=== PATIENT | male | born 1975 | race Caucasian/White ===

== ENCOUNTER 2017-01-26 11:39 | Emergency (ER) | payer BC ==
[2017-01-26 12:00] VITALS: BP 143/82
--- NOTE | 2017-01-26 12:30 | RAD ---
Indication: Lateral edema and pain with right ankle injury. 3 views of the right ankle demonstrates oblique fracture through the distal fibula. Soft tissue swelling is noted laterally. Ankle mortise is intact. IMPRESSION: Oblique fracture of the distal fibula with soft tissue swelling.
--- NOTE | 2017-01-26 12:53 | UC ---
Lower Extremity/Ankle HPI - HPI Summary HPI Summary: YESTERDAY SLIPPED WHILE WALKING IN THE [place]. PAIN AND SWELLING IN RIGHT ( LATERAL) ANKLE. 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 Onset/Duration: Sudden Onset, Lasting Hours Severity Initially: Moderate Severity Currently: Moderate Aggravating Factor(s): Standing, Ambulation Alleviating Factor(s): Rest, Elevation Able to Bear Weight: Yes - Risk Factors Gout Risk Factors: Negative DVT Risk Factors: Negative Septic Arthritis Risk Factor: Negative - Allergies/Home Medications Allergies/Adverse Reactions: Allergies Allergy/AdvReac Type Severity Reaction Status Date / Time No Known Allergies Allergy Verified 01/26/17 12:00 Home Medications: Home Medications Ibuprofen TAB* [Motrin TAB* 400 MG] 400 mg PO ONCE PRN 01/26/17 [History Confirmed 01/26/17] PMH/Surg Hx/FS Hx/Imm Hx Previously Healthy: Yes - Surgical History Surgical History: None Surgery Procedure, Year, and Place: removal of a lipoma on back - Family History Known Family History: Positive: None, Hypertension - Social History Occupation: Employed Full-time Lives: With Family Alcohol Use: Occasionally Substance Use Type: None Smoking Status (MU): Former Smoker Type: Cigarettes Have You Smoked in the Last Year: No Review of Systems Constitutional: Negative Skin: Negative Eyes: Negative ENT: Negative Respiratory: Negative Cardiovascular: Negative Gastrointestinal: Negative Genitourinary: Negative Motor: Negative Neurovascular: Negative Musculoskeletal: Arthralgia, Edema - RIGHT LATERAL ANKLE, Myalgia Neurological: Negative Psychological: Negative Is Patient Immunocompromised?: No All Other Systems Reviewed And Are Negative: Yes Physical Exam Triage Information Reviewed: Yes Appearance: Well-Appearing, No Pain Distress, Well-Nourished Vital Signs: Initial Vital Signs Temp 98.3 F 01/26/17 11:54 Pulse 86 01/26/17 11:54 Resp 18 01/26/17 11:54 BP 143/82 01/26/17 11:54 Vital Signs Reviewed: Yes Eye Exam: Normal ENT Exam: Normal ENT: Positive: Normal ENT inspection, Hearing grossly normal, Pharynx normal Dental Exam: Normal Neck exam: Normal Neck: Positive: Supple, Nontender, No Lymphadenopathy Respiratory Exam: Normal Respiratory: Positive: Chest non-tender, Lungs clear, Normal breath sounds, No respiratory distress, No accessory muscle use Cardiovascular Exam: Normal Cardiovascular: Positive: RRR, No Murmur, Pulses Normal, Brisk Capillary Refill Abdominal Exam: Normal Musculoskeletal: Positive: Strength Limited @ - RIGHT ANKLE, ROM Limited @ - RIGHT ANKLE, Edema @ - RIGHT ANKLE, Other: - NO PROXIMAL LATERAL LEG TENDERNESS , NO FOOT TENDERNESS TO PALPATION Neurological Exam: Normal Psychological Exam: Normal Skin Exam: Normal Diagnostics - Radiology No standard instances Xray Interpretation: Positive (See Comments) - Interpreted by radiologist, reviewed by BERYL. Interpretation : CLOSED OBLIQUE FRACTURE OF THE DISTAL FIBULA WITH SOFT TISSUE SWELLING Radiology Interpretation Completed By: ED Physician, Radiologist Lower Extremity Course/Dx - Differential Dx/Diagnosis Differential Diagnosis/HQI/PQRI: Fracture (Closed), Sprain, Strain Provider Diagnoses: CLOSED OBLIQUE FRACTURE OF THE RIGHT DISTAL FIBULA WITH SOFT TISSUE SWELLING. Discharge - Discharge Plan Condition: Stable Disposition: HOME Patient Education Materials: Ankle Fracture (ED) Referrals: Clifford Portillo MD [Medical Doctor] - Mick Corrla DO [Primary Care Provider] -
== END 2017-01-26 13:01 | disposition home or self-care (01) ==
LOC: UCCORT 11:39
DX: S82.831A Other fracture of upper and lower end of right fibula, initial encounter for closed fracture (principal); W18.49XA Other slipping, tripping and stumbling without falling, initial encounter; Y93.01 Activity, walking, marching and hiking; Y92.9 Unspecified place or not applicable; Z87.891 Personal history of nicotine dependence
CPT/HCPCS: 99213; G0463

== ENCOUNTER 2017-03-23 15:53 | Emergency (ER) | payer BC, OTHER ==
[2017-03-23 17:03] VITALS: BP 126/84
--- NOTE | 2017-03-23 18:29 | ED ---
Respiratory - HPI Summary HPI Summary: 42 yr old male with the complaint of fever, chills, cough, malaise, muscle aches , pain with coughing. Onset about 36 hours ago. No other complaints. - History of Current Complaint Chief Complaint: UCGeneralIllness Stated Complaint: FEVER SORE THROAT CONGESTION Time Seen by Provider: 03/23/17 18:09 Pain Intensity: 2 - Allergy/Home Medications Allergies/Adverse Reactions: Allergies Allergy/AdvReac Type Severity Reaction Status Date / Time No Known Allergies Allergy Verified 01/26/17 12:00 Home Medications: Home Medications D-Methorphan/PE/Acetaminophen [Daytime Cold-Flu Relief Sftgl] 1 each PO DAILY [History Confirmed 03/23/17] Dextromethorphan Hb/Doxylamine [Gnp Night Time Cough] 1 liq PO BEDTIME PRN 03/23 [History Confirmed 03/23/17] PMH/Surg Hx/FS Hx/Imm Hx Previously Healthy: Yes - Surgical History Surgery Procedure, Year, and Place: removal of a lipoma on back Infectious Disease History: No Infectious Disease History: Denies: Hx Clostridium Difficile, Hx Hepatitis, Hx Human Immunodeficiency Virus (HIV), Hx of Known/Suspected MRSA, Hx Shingles, Hx Tuberculosis, Hx Known/ Suspected VRE, Hx Known/Suspected VRSA, History Other Infectious Disease, Traveled Outside the [place] in Last 30 Days - Family History Known Family History: Positive: None, Hypertension - Social History Alcohol Use: Occasionally Substance Use Type: Reports: None Smoking Status (MU): Former Smoker Type: Cigarettes Have You Smoked in the Last Year: No Review of Systems Positive: Fever, Chills Positive: Nasal Discharge Positive: Cough Positive: Myalgia All Other Systems Reviewed And Are Negative: Yes Physical Exam Triage Information Reviewed: Yes Vital Signs On Initial Exam: Initial Vitals Temp Pulse Resp BP Pulse Ox 99.4 F 75 24 126/84 99 03/23/17 16:59 03/23/17 16:59 03/23/17 16:59 03/23/17 16:59 03/23/17 16:59 Vital Signs Reviewed: Yes Appearance: Positive: Well-Appearing, No Pain Distress Skin: Positive: Warm, Skin Color Reflects Adequate Perfusion Head/Face: Positive: Normal Head/Face Inspection Eyes: Positive: EOMI ENT: Positive: Pharynx normal Neck: Positive: Nontender Respiratory/Lung Sounds: Positive: Clear to Auscultation, Breath Sounds Present Cardiovascular: Positive: RRR. Negative: Murmur Abdomen Description: Positive: Nontender Musculoskeletal: Positive: Strength/ROM Intact Neurological: Positive: Sensory/Motor Intact, Alert, Oriented to Person Place, Time, CN Intact II-III Psychiatric: Positive: Normal - Gilbert Coma Scale Best Eye Response: 4 - Spontaneous Best Motor Response: 6 - Obeys Commands Best Verbal Response: 5 - Oriented Coma Scale Total: 15 Diagnostics - Vital Signs Vital Signs Temp Pulse Resp BP Pulse Ox 03/23/17 16:59 99.4 F 75 24 126/84 99 - Laboratory Lab Statement: Any lab studies that have been ordered have been reviewed, and results considered in the medical decision making process. Disposition - Course Course Of Treatment: 42 yr old male with the complaint of coughing, myalgias. Flu like symptoms. - Diagnoses Provider Diagnoses: Influenza Discharge - Discharge Plan Condition: Good Disposition: HOME Patient Education Materials: Influenza (ED) Referrals: Mick Corral DO [Primary Care Provider] -
== END 2017-03-23 18:56 | disposition home or self-care (01) ==
LOC: UCCORT 15:53
DX: J11.1 Influenza due to unidentified influenza virus with other respiratory manifestations (principal); Z87.891 Personal history of nicotine dependence; Z72.89 Other problems related to lifestyle
CPT/HCPCS: 87502; 99212; G0463

== ENCOUNTER 2018-06-13 18:37 | Emergency (ER) | payer OTHER ==
--- OUTSIDE RECORDS SUMMARY | 2018-06-13 18:49 | XMS REPORT | Continuity of Care Document ---
:1975 External Reference #:[id number] Author Name Mick Corral, Address [address] [place] [address] Care Team Providers Name Role Phone Mick Corral Care Team Information Kennel Manager Dog Track Unavailable Payers Date Identification Numbers Payment Provider Subscriber Effective: 2018 Policy Number: [id number] [facility]ance PayID: [id number] [place] [id number] Advance Directives Description No Information Available Problems Active Problems Provider Date Lipoma (clinical) Terrell Salazar MD Onset: 04/15/2011 Family History Date Family Member(s) Observation Comments Father Arthritis Mother Arthritis Social History Type Date Description Comments Sex Unknown Marital Status Single 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 Tobacco Use Start: Unknown End: Patient is a former Unknown smoker Allergies, Adverse Reactions, Alerts Description No Known Drug Allergies Medications Active Medications SIG Qnty Indications Ordering Provider Date No Active Medications Unknown 06/02/2018 History Medications No Active Medications Unknown 04/02/2015 - 04/08/2017 Vitamin D 1 by mouth every day Unknown - 06/02/2018 1000Unit Tablets Immunizations CPT Code Status Date Vaccine Lot # [id number] Given 05/10/2012 Tdap (Adacel) Ages 7 And Above Only [id number] Refused 06/02/2018 Influenza Vac, Quadrivalent, Split, 0.5mL Dosage, Im Use Vital Signs Date Vital Result Comment 06/02/2018 11:53am Weight 178.00 lb Heart Rate 74 /min BP Systolic 148 mmHg BP Diastolic 84 mmHg BP Systolic Recheck 120 mmHg BP Diastolic Recheck 78 mmHg Respiratory Rate 17 /min Height 72.25 inches 6'0.25" (03/2016) BMI (Body Mass Index) 24.0 kg/m2 04/08/2017 9:19am Weight 180.00 lb Heart Rate 74 /min BP Systolic 104 mmHg BP Diastolic 70 mmHg Respiratory Rate 17 /min Height 72.25 inches 6'0.25" (03/2016) BMI (Body Mass Index) 24.2 kg/m2 04/03/2016 11:05am Weight 181.00 lb Heart Rate 74 /min BP Systolic 118 mmHg BP Diastolic 64 mmHg Respiratory Rate 17 /min Height 72.25 inches 6'0.25" (03/2016) BMI (Body Mass Index) 24.4 kg/m2 04/02/2015 10:35am Weight 172.00 lb Heart Rate 72 /min BP Systolic 132 mmHg BP Diastolic 78 mmHg BP Systolic Recheck 124 mmHg BP Diastolic Recheck 84 mmHg Respiratory Rate 17 /min Height 72.25 inches 6'0.25" (03/2015) BMI (Body Mass Index) 23.2 kg/m2 05/13/2013 9:10am Weight 169.00 lb Heart Rate 70 /min BP Systolic 112 mmHg BP Diastolic 64 mmHg Respiratory Rate 18 /min Height 70.5 inches 5'10.50" (04/2013) 03/16/2013 1:50pm Body Temperature 98.0 F Weight 162.00 lb Down 19# Heart Rate 64 /min BP Systolic 120 mmHg BP Diastolic 70 mmHg Respiratory Rate 18 /min 05/10/2012 10:49am Weight 183.00 lb Heart Rate 72 /min BP Systolic 124 mmHg BP Diastolic 86 mmHg Respiratory Rate 20 /min Height 73.5 inches 6'1.50" 10/06/2011 1:03pm Weight 184.00 lb Heart Rate 72 /min BP Systolic 140 mmHg BP Diastolic 80 mmHg Respiratory Rate 20 /min Height 72.5 inches 6'0.50" 04/15/2011 1:13pm Weight 191.00 lb BP Systolic 134 mmHg BP Diastolic 82 mmHg Respiratory Rate 20 /min 01/14/2011 3:09pm Weight 185.00 lb Heart Rate 70 /min BP Systolic 132 mmHg BP Diastolic 90 mmHg Respiratory Rate 17 /min Height 72.5 inches 6'0.50" 08/26/2010 2:29pm Weight 179.00 lb Heart Rate 80 /min BP Systolic 136 mmHg BP Diastolic 92 mmHg Respiratory Rate 20 /min Height 72.5 inches 6'0.50" 08/13/2009 8:19am Weight 178.00 lb Heart Rate 80 /min BP Systolic 132 mmHg BP Diastolic 80 mmHg Results Test Date Facility Test Result H/L Range Note CBC With Auto Diff 04/08/2017 [facility] WBC 4.9 K/uL 4.1-11.0 RBC 4.57 M/uL Low 4.60-6.10 Hemoglobin 14.9 gm/dL 13.5-18.0 Hematocrit 42.6 % 41.0-53.0 MCV 93.3 fL 80.0-97.0 MCH 32.6 pg High 27.0-32.0 MCHC 35.0 g/dL 32.0-36.0 RDW 12.5 % 11.5-14.5 PLT Count 300 K/ul 140-400 MPV 8.8 FL 7.1-10.7 Neutrophil 60.8 % 35.0-75.0 Lymphocyte 30.8 % 16.0-52.0 Monocyte 6.0 % 2.0-10.0 Eosinophil 2.0 % 0.0-5.0 Basophil 0.4 % 0.0-4.0 Abs Neutrophils 3.0 K/uL 2.1-8.0 Abs Lymphocytes 1.5 K/uL 0.8-5.5 Abs Monocytes 0.3 K/uL 0.1-1.0 Abs Eosinophils 0.1 K/uL 0.0-0.5 Abs Basophils 0.0 K/uL 0.0-0.3 Comprehensive Met Panel-[facility]G 04/08/2017 [facility] Sodium 143 mmol/L 135- 146 1 Potassium 4.4 mmol/L 3.5-5.2 Chloride# 107 mmol/L 97-110 2 Carbon Dioxide 28 mmol/L 24-34 Glucose 94 mg/dL 70-105 BUN 15 mg/dL 6-26 Creatinine 1.1 mg/dL 0.5-1.4 Calcium 9.4 mg/dL 8.5-10.2 Total Protein 6.6 g/dL 6.0-8.0 Albumin 4.5 g/dL 3.6-4.9 Globulin 2.1 g/dL 2.0-3.5 A/G Ratio 2.1 Ratio 1.0-2.2 Total Bilirubin 1.1 mg/dL 0.1-1.3 Alkaline Phosphatase 63 U/L 24-140 Alt 20 U/L 3-42 Ast 14 U/L 8-42 Yolanda Egfr >60 >60 3 Non Yolanda Egfr >60 >60 4 Anion Gap 8 mmol/L 5-15 5 Lipid 04/08/2017 [facility] Cholesterol 182 mg/dL 50-199 Triglycerides 83 mg/dL 30-200 HDL 39 mg/dL 29-71 6 Chol/ HDL Ratio 4.7 ratio 4.0-6.7 VLDL 17 mg/dL 2-29 LDL (Calc) 127 mg/dL High 20-99 7 Laboratory test 04/08/2017 [facility] Vitamin D 25 37 ng/mL 30-100 8 finding Hydroxy Laboratory test 05/13/2013 N2N/CCD Import Alb/Glob 1.4 ratio finding Albumin 4.5 g/dL 3.5-5.0 Alkaline Phosphatase 75 U/L 50-136 Anion Gap 8 mEq/L 8-16 BUN 19 mg/dL 5-23 BUN/Creat 17.2 ratio Bas% 0.5 % 0.1-1.0 Baso # 0.02 K/uL Low 0.1-0.2 Bilirubin,Total 0.9 mg/dL 0.2-1.2 Calcium 9.3 mg/dL 8.5-10.1 Carbon Dioxide 31 mEq/L High 18-29 Chloride 106 mmol/L 98-107 Creatinine 1.1 mg/dL 0.5-1.4 Eo% 1.4 % 0.0-5.0 Eos # 0.06 K/uL 0.0-0.5 Globulin 3.2 g/dL 1.9-4.3 Glom Filtration Rate, Estimate >60 mL/min >60 Glucose 91 mg/dL 76-115 9 Hematocrit 43.7 % 38.0-48.0 Hemoglobin 15.1 gm/dL 12.8-17.0 If >60 mL/min >60 Lymph # 1.64 K/uL 1.2-4.0 Lymph % 37.4 % 17.0-56.0 Mean Cell Volume 93.6 fl 80.0-96.0 Mean Corpuscular HGB 32.3 pg 27.0-33.0 Mean Corpuscular HGB Conc 34.6 g/dL 31.7-36.0 Mean Platelet Volume 10.9 fL High 6.6-10.6 Lipscomb # 0.42 K/uL 0.0-0.6 Lipscomb % 9.6 % 0.0-10.0 Neut# 2.24 K/uL 1.8-7.0 Neut% 51.1 % 33.0-73.0 Platelet Count 264 K/uL 150-400 Potassium 4.1 mmol/L 3.5-5.1 Red Blood Count 4.67 M/uL 4.20-5.80 Red Cell Distri Width %CV 13.9 % 11.6-15.8 Red Cell Distri Width SD 46.4 fl 36-51 SGPT/Alt 25 U/L Low 30-65 Sgot/Ast 14 U/L Low 16-40 Sodium 141 mmol/L 136-145 Total Protein 7.7 g/dL 6.3-8.0 White Blood Count 4.4 K/uL 3.4-10.5 Laboratory test 03/16/2013 N2N/CCD Import Throat Culture See Note 10 finding Complete Laboratory test 03/16/2013 N2N/CCD Import Alb/Glob 1.3 ratio finding Albumin 3.9 g/dL 3.5-5.0 Alkaline Phosphatase 369 U/L High 50-136 Anion Gap 11 mEq/L 8-16 Anisocytosis 0-1+ Atypical Lymph% 40 % High 0-7 BUN 12 mg/dL 5-23 11 BUN/Creat 12.0 ratio Bilirubin,Total 1.8 mg/dL High 0.2-1.2 Calcium 9.0 mg/dL 8.5-10.1 Carbon Dioxide 29 mEq/L 18-29 Chloride 102 mmol/L 98-107 Creatinine 1.0 mg/dL 0.5-1.4 12 Differential Comment See Note Eos # 0.03 K/uL 0.0-0.5 Eosinophil% 1 % 0-5 Free T4 1.23 ng/dL 0.71-1.85 Globulin 3.0 g/dL 1.9-4.3 Glom Filtration Rate, Estimate >60 mL/min >60 13 Glucose 92 mg/dL 76-115 14 Hematocrit 47.3 % 38.0-48.0 Hemoglobin 16.3 gm/dL 12.8-17.0 Hypochromia 0-1+ If >60 mL/min >60 Lymph # 7.80 K/uL High 1.2-4.0 Lymph% 31 % 17-56 Mean Cell Volume 95.7 fl 80.0-96.0 Mean Corpuscular HGB 33.0 pg 27.0-33.0 Mean Corpuscular HGB Conc 34.5 g/dL 31.7-36.0 Mean Platelet Volume 11.8 fL High 6.6-10.6 Metamyelocyte% 1 % High -0 Lipscomb # 0.90 K/uL High 0.0-0.6 Monocyte% 5 % 0-10 Monoscreen (Heterophile) Positive High Negative 15 Neutrophils% 22 % Low 33-73 Platelet Count 171 K/uL 150-400 Platelet Estimate Normal Polychromasia 0-1+ Potassium 4.3 mmol/L 3.5-5.1 RBC Morphology Normal Red Blood Count 4.94 M/uL 4.20-5.80 Red Cell Distri Width %CV 13.4 % 11.6-15.8 Red Cell Distri Width SD 46.6 fl 36-51 SGPT/Alt 882 U/L High 30-65 Sgot/Ast 381 U/L High 16-40 Sodium 138 mmol/L 136-145 Thyroid Stim Hormone 2.08 uIU/mL 0.49-4.67 16 Total Cells Counted 100 #CELLS 17 Total Protein 6.9 g/dL 6.3-8.0 Vitamin B12 767 pg/mL 200-900 White Blood Count 11.1 K/uL High 3.4-10.5 Laboratory test finding 07/27/2012 N2N/CCD Import Lipoma See Note 18 Laboratory test finding 05/10/2012 N2N/CCD Import Anion Gap 12 mEq/L 8- 16 BUN 14 mg/dL 5-23 BUN/Creat 12.7 ratio Bas% 0.3 % 0.1-1.0 Baso # 0.02 K/uL Low 0.1-0.2 Calcium 9.5 mg/dL 8.5-10.1 Carbon Dioxide 31 mEq/L High 18-29 Chloride 103 mmol/L 98-107 Creatinine 1.1 mg/dL 0.5-1.4 Eo% 1.3 % 0.0-5.0 Eos # 0.08 K/uL 0.0-0.5 Glom Filtration Rate, Estimate >60 mL/min >60 Glucose 91 mg/dL 76-115 19 Hematocrit 46.9 % 38.0-48.0 Hemoglobin 16.2 gm/dL 12.8-17.0 If >60 mL/min >60 Lymph # 1.39 K/uL 1.2-4.0 Lymph % 22.5 % 17.0-56.0 Mean Cell Volume 96.1 fl High 80.0-96.0 Mean Corpuscular HGB 33.2 pg High 27.0-33.0 Mean Corpuscular HGB Conc 34.5 g/dL 31.7-36.0 Mean Platelet Volume 10.8 fL High 6.6-10.6 Lipscomb # 0.41 K/uL 0.0-0.6 Lipscomb % 6.6 % 0.0-10.0 Neut# 4.28 K/uL 1.8-7.0 Neut% 69.3 % 33.0-73.0 Platelet Count 306 K/uL 150-400 Potassium 4.3 mmol/L 3.5-5.1 Red Blood Count 4.88 M/uL 4.20-5.80 Red Cell Distri Width %CV 12.6 % 11.6-15.8 Red Cell Distri Width SD 43.3 fl 36-51 Sodium 142 mmol/L 136-145 White Blood Count 6.2 K/uL 3.4-10.5 LDL Cholesterol 05/10/2012 N2N/CCD Import Cholesterol 207 mg/dL High 120- 200 Profile HDL Cholesterol 42 mg/dL 29-83 LDL-Cholesterol 139 mg/dL 62-185 Triglycerides 131 mg/dL 16-231 Laboratory test 08/13/2009 N2N/CCD Import Absolute 0.056 K/ul 0.0-0.3 20 finding Basophils Absolute Eosinophils 0.075 K/ul 0.0-0.5 Absolute Lymphocytes 1.37 K/ul 0.8-4.8 Absolute Monocytes 0.412 K/ul 0.1-1.0 Absolute Neutrophils 3.04 K/ul 2.05-7.63 Basophil 1.1 % 0-2 Eosinophil 1.5 % 0-4 Hematocrit 41.4 % 37.0-51.0 Hemoglobin 15.0 GM/dl 12.0-16.0 Lymphocytes 27.6 % 20-44 MCH 33.7 pg High 26.0-32.0 MCHC 36.2 g/dL High 31.0-36.0 MCV 93 FL 80-97 Monocytes 8.3 % 2-10.0 Neutrophils 61.4 % 50-70 Platelet Count 307 K/ul 140-440 RBC 4.45 M/ul 4.2-6.3 RDW 10.8 % Low 11.5-14.5 WBC 5.0 K/ul 4.1-10.9 Lipid Panel 08/13/2009 N2N/CCD Import Chol/HDL Ratio 4.3 Cholesterol 192 mg/dL 50-199 HDL Cholesterol 44 mg/dL 29-67 LDL 134 mg/dL High 20-129 21 Triglycerides 72 mg/dL 30-249 VLDL Cholesterol 14 mg/dL 1 Updated reference range on new analyzer 2 Updated reference range on new analyzer 3 Concerning GFR Guidelines for Americans: Normal function or mild renal disease, if clinically at risk: >/=60 mL/min Moderately decreased: 30-59 Severely decreased: 15-29 Renal failure: <15 4 Concerning GFR Guidelines: Normal function or mild renal disease, if clinically at risk: >/=60 mL/min Moderately decreased: 30-59 Severely decreased: 15-29 Renal failure: <15 Glomerular Filtration Rate (GFR) is estimated based on the MDRD equation, which assumes a steady state for creatinine as recommended by the National Kidney Disease Education Program in conjunction with the National Institutes of Health and the National Kidney Foundation. Clinical conditions in which it may be necessary to measure GFR by using clearance methods include extremes of age and body size, severe malnutrition or obesity, diseases of skeletal muscle, paraplegia or quadriplegia, vegetarian diet, rapidly changing kidney function, and calculation of the dose of potentially toxic drugs that are excreted by the kidneys. 5 Updated Reference Range 6 Per NCEP ATP III Guidelines: Results lower than 40 mg/dL are suggestive of increased risk for coronary artery disease. Results > or=to 60 mg/dL are considered a negative risk factor. 7 Per NCEP ATP III Guidelines: Normal Population <130 Patients with medical conditions: CHD/DM Optimal: <100 Borderline high: 130-159 High: 160-189 Very high: >189 8 Clinical Guidelines for recommended serum 25(OH)Vitamin D Deficient at less than 20 ng/mL Insufficient at 20 to <30 ng/mL Sufficient at 30-100 ng/mL Toxicity at greater than 100 ng/mL 9 Note: Persistent reduction for 3 months or more in an eGFR <60 mL/min/1.73 m2 defines CKD. Patients with eGFR values >/=60 mL/min/1.73 m2 may also have CKD if evidence of persistent proteinuria is present. The original MDRD equation for estimated GFR is not valid for patients less than 18 years of age. Additional information may be found at www.kdoqi.org. 10 NORMAL THROAT RAFAEL 11 Result confirmed by repeat analysis. 12 Result confirmed by repeat analysis. 13 Result confirmed by repeat analysis. 14 Note: Persistent reduction for 3 months or more in an eGFR <60 mL/min/1.73 m2 defines CKD. Patients with eGFR values >/=60 mL/min/1.73 m2 may also have CKD if evidence of persistent proteinuria is present. The original MDRD equation for estimated GFR is not valid for patients less than 18 years of age. Additional information may be found at www.kdoqi.org. 15 Note: This test has not been established for use in patients less than 18 years of age. 16 QUERY: Is the Patient Fasting? N 17 FEW LARGE PLTS SEEN 18 OPERATION/PROCEDURE Excision DIAGNOSIS: "LESION, RIGHT BACK, EXCISION": LIPOMA. Oniel GROSS Received in formalin labeled, "LIPOMA OF RIGHT BACK" is a 7.6 x 5.9 x 1.8 cm. kelley-yellow, soft tissue with a fine capsule. The entire surface is inked, the specimen is serially sectioned. On cut surface it appears to be mature adipose tissue without evidence of necrosis nor hemorrhage. Accounts Administrator sections are submitted in two blocks. Oniel MICROSCOPIC Sections reveal mature adipose tissue with delicate capillaries. PRE OPERATIVE DIAGNOSIS Lipoma right back. REVIEW CODE CODE: I ----- MONROE Ken MD 07/29/12 1455 ----- 19 Note: Persistent reduction for 3 months or more in an eGFR <60 mL/min/1.73 m2 defines CKD. Patients with eGFR values >/=60 mL/min/1.73 m2 may also have CKD if evidence of persistent proteinuria is present. The original MDRD equation for estimated GFR is not valid for patients less than 18 years of age. Additional information may be found at www.kdoqi.org. 20 FASTING 21 Normal Range: Male: <4.98 Female: <4.45 Procedures Description No Information Available Encounters Type Date Location Provider Dx Diagnosis Office Visit 04/08/2017 [facility] Mick Corral DO Z00.00 Encntr for general 9:00a adult medical exam w/o abnormal findings Z13.220 Encounter for screening for lipoid disorders M84.464D Pathological fracture, LEFT fibula, subs for fx w tobin yash J10.89 Influenza due to oth ident influenza virus w oth manifest Office Visit 04/03/2016 10:30a [facility] Mick Corral DO Z00.00 Encntr for general adult medical exam w/o abnormal findings S23.41xA Sprain of ribs, initial encounter Office Visit 04/02/2015 10:30a [facility] Mick Corral DO Z00.00 Encntr for general adult medical exam w/o abnormal findings M84.474D Pathological fracture, RIGHT foot, subs for fx w routn heal Plan of Treatment Future Appointment(s):06/06/2019 8:00 am - Mick Corral DO at [facility]06/02/2018 - Mick Corral DOZ00.00 Encounter for general adult medical examination without abnoFollow up:Follow up in 1 year for an annual physical or sooner if you have any problems- 15 mins ok.R03.0 Elevated blood-pressure reading, without diagnosis of hypertAllNew Medication:No Active Medications -
[2018-06-13 18:58] VITALS: BP 147/78
--- NOTE | 2018-06-13 19:06 | UC ---
Ear Complaint HPI - HPI Summary HPI Summary: 43 y/o male presents to the urgent care c/o sinus congestion, yellowish nasal discharge, moderated PND w/ sore throat since Thursday06/08/2018. He has been taking OTC medication to alleviate symptoms. However this morning sinus pain worse, w/ sore throat and then around 0900Am he developed left eye yellowish moderate drainage w/ eye redness. Sore throat and sinus pain is 8/10. Pt denies fever, [place], dizziness, ear pain, cough, SOB, chest pain, abdominal pain, N/V/D. - History of Current Complaint Chief Complaint: UCEye Stated Complaint: LEFT EYE ISSUE Time Seen by Provider: 06/13/18 19:00 Hx Obtained From: Patient Onset/Duration: Gradual Onset, Lasting Days - 6 days, Still Present, Worse Since - ay w/ left eye yellwihs drainage Severity Initially: Mild Severity Currently: Moderate Pain Intensity: 8 - sore throat and sinus pain Pain Scale Used: 0-10 Numeric Aggravating Factors: Other - moderate yellowish drainage from left eye Alleviating Factors: Nothing Associated Signs/Symptoms: Positive: URI Symptoms - Allergies/Home Medications Allergies/Adverse Reactions: Allergies Allergy/AdvReac Type Severity Reaction Status Date / Time No Known Allergies Allergy Verified 06/13/18 18:58 PMH/Surg Hx/FS Hx/Imm Hx Previously Healthy: Yes - Pt denies PMHX - Surgical History Surgical History: Yes Surgery Procedure, Year, and Place: removal of a lipoma on back - Family History Known Family History: Positive: Hypertension - Social History Occupation: Employed Full-time Lives: With Family Alcohol Use: Occasionally Substance Use Type: None Smoking Status (MU): Former Smoker Type: Cigarettes Have You Smoked in the Last Year: No When Did the Patient Quit Smoking/Using Tobacco: 2007 Review of Systems All Other Systems Reviewed And Are Negative: Yes Constitutional: Positive: Negative Skin: Positive: Negative Eyes: Positive: Drainage - left eye w/ yellowish drainage sicne this morning, Eye Redness - left eye. Negative: Blurred Vision, Diplopia, Photophobia ENT: Positive: Sore Throat, Nasal Discharge - moderate yellowish drainage, Sinus Congestion, Sinus Pain/Tenderness, Other - moderate PND Respiratory: Positive: Cough - dry Cardiovascular: Positive: Negative Gastrointestinal: Positive: Negative Genitourinary: Positive: Negative Motor: Positive: Negative Neurovascular: Positive: Negative Musculoskeletal: Positive: Negative Neurological: Positive: Negative Psychological: Positive: Negative Is Patient Immunocompromised?: No Physical Exam - Summary Physical Exam Summary: Vital Signs Reviewed: Yes General: Well appearing, well nourished male in no apparent pain distress Eyes: Positive: left Conjunctiva Inflamed - Visual acuity: WNL,Visual gamez: full to confrontation. PERRLA, EOMI intact w/out limitation or complaint of pain. eyelashes clear. moderate tearing and yellowish drainage observed on left eye w/ mild swelling over the left lower eyelid. No ciliary flush. No chemosis, No photophobia. Normal fundoscopic exam; no proptosis, exophthalmos, nystagmus. ENT: Positive: Normal ENT inspection, Hearing grossly normal, Pharynx w/ erythema, no exudatel, Nasal congestion, Nasal drainage moderated green drainage and B/L maxillary and frontal tenderness on percusiion. TMs normal - B/ L external ear canal clear , TM's WNL. Negative: Tonsillar swelling, Tonsillar exudate, moderated yellowish PND Neck: Positive: Supple, Nontender, No Lymphadenopathy Respiratory: Positive: Chest nontender, Lungs clear, Normal breath sounds, No respiratory distress Cardiovascular: Positive: RRR, No Murmur, Pulses Normal, Brisk Capillary Refill Abdomen Description: Positive: Nontender, No Organomegaly, Soft. Negative: CVA Tenderness (R), CVA Tenderness (L) Bowel Sounds: Positive: Present Musculoskeletal: Positive: Strength Intact, ROM Intact, No Edema Neurological Exam: Normal Psychological Exam: Normal Skin Exam: Normal Triage Information Reviewed: Yes Vital Signs: Initial Vital Signs Temp 99 F 06/13/18 18:54 Pulse 81 06/13/18 18:54 Resp 18 06/13/18 18:54 BP 147/78 06/13/18 18:54 Pulse Ox 98 06/13/18 18:54 Ear Complaint Course/Dx - Course Course Of Treatment: 43 y/o male presents to the urgent care c/o sinus congestion, yellowish nasal discharge, moderated PND w/ sore throat since Thursday06/08/2018. He has been taking OTC medication to alleviate symptoms. However this morning sinus pain worse, w/ sore throat and then around 0900Am he developed left eye yellowish moderate drainage w/ eye redness. Sore throat and sinus pain is 8/10. Pt denies fever, [place], dizziness, ear pain, cough, SOB, chest pain, abdominal pain, N/V/D. Hx obtained. PE abnormal findings: B/L PERRLA, EOMI, fundi grossly normal, no tender to palpation. LF conjunctiva moderately injected, moderate yellowish discharge and mild swelling over left lower eyelid , RT conjunctiva clear. Most likely Bacterial conjunctivitis and also pharyngitis and sinusitis on examination. RApid strep: negative. Pt Rx Ciprofloxacin ophthalmic drops and dispense here at the clinic. Also Rx Amoxicillin PO and flonase nasal spray as directed below to alleviate sinusitis advised if symptoms do not improve or worsen to f/u with Electrical Prospect[employer] Supervisor Dr Nelson or PCP in 3 days. Pt's BP is elevated today advised to decrease salt in diet, monitor BP and f/u with PCP for further management. D/C instructions explained. Pt understood and agreed w/ plan of care. - Differential Dx/Diagnosis Differential Diagnosis/HQI/PQRI: Cerumen Impaction, Otitis Externa, Otitis Media , Perforated TM, URI, Other - sinusitis Provider Diagnosis: Bacterial conjunctivitis of left eye, Acute bacterial sinusitis, Elevated BP without diagnosis of hypertension Discharge - Sign-Out/Discharge Documenting (check all that apply): Patient Departure - D/C home All imaging exams completed and their final reports reviewed: No Studies - Discharge Plan Condition: Stable Disposition: HOME Prescriptions: Amoxicillin PO (*) [Amoxicillin 500 MG CAP*] 500 mg PO Q12H #19 cap Fluticasone NASAL SPRAY 50MCG* [Flonase NASAL SPRAY 50MCG*] 2 spray BOTH NARES DAILY #1 btl Patient Education Materials: Sinusitis (ED), Conjunctivitis (ED) Referrals: Angelica Nelson MD [Medical Doctor] - If Needed Mick Corral DO [Primary Care Provider] - 2 Days Additional Instructions: 1-Please apply Ciprofloxacin ophthalmic drops dispense here at the clinic as instructed and finish the full course of treatment to avoid recurrent infection. Encourage hand washing o avoid spreading. 2- Take Amoxicillin PO as directed to alleviate sinusitis. Please take yogurts w / probiotics or Culturelle to protect your GI system. 3- Use the Flonase nasal spray and saline drops as directed to clear sinuses. 4-If you do not improve or if symptoms worsen please f/u with certified public accountant DR Nelson or your PCP in 3 days for further evaluation and treatment 5- Your BP is elevated today. please decrease salt in your diet, monitor BP and if it continues to be elevated please f/u with your PCP for further management. - Billing Disposition and Condition Condition: STABLE Disposition: Home
[2018-06-13] MEDS ORDERED: Ciprofloxacin 0.3% OPTH.SOL* 2.5 ML BTL LEFT EYE ONE (19:31)
[2018-06-13] MEDS ORDERED: Amoxicillin PO (*) 500 MG CAP PO ONE (19:33)
== END 2018-06-13 19:53 | disposition home or self-care (01) ==
LOC: UCCORT 18:37
DX: H10.9 Unspecified conjunctivitis (principal); J01.90 Acute sinusitis, unspecified; R03.0 Elevated blood-pressure reading, without diagnosis of hypertension; Z87.891 Personal history of nicotine dependence
CPT/HCPCS: 87651; 99213; A9270-GY; G0463

== ENCOUNTER 2019-01-22 14:54 | Emergency (ER) | payer BC, OTHER ==
[2019-01-22 15:44] VITALS: BP 125/77
--- NOTE | 2019-01-22 15:47 | UC ---
Throat Pain/Nasal [place] HPI - HPI Summary HPI Summary: 44 y/o male presents to the urgent care c/o nasal congestion w./ moderate nasal discharge, sinus pain and dry cough for the past month. Pt states keila throat in the past week when he wakes up and on an off H. Pt has tried OTC medication w/o any improvement and now feels he needs antibiotic treatment. Pain is 4/10. Pt denies fever, dizziness, wheezing, SOB, chest pain, abdominal pain, N/V/D. - History of Current Complaint Chief Complaint: UCGeneralIllness Stated Complaint: SINUS Time Seen by Provider: 01/22/19 15:42 Hx Obtained From: Patient Onset/Duration: Gradual Onset, Lasting Weeks - 4 weeks, Still Present, Worse Since - 1 week Severity: Moderate Pain Intensity: 5 - sinus pain Pain Scale Used: 0-10 Numeric Cough: Nonproductive Associated Signs & Symptoms: Positive: Sinus Discomfort, Nasal Discharge - green , Other - PND. Negative: Dysphagia, Wheezing, Fever - Epiglottits Risk Factors Epiglottis Risk Factors: Negative - Allergies/Home Medications Allergies/Adverse Reactions: Allergies Allergy/AdvReac Type Severity Reaction Status Date / Time No Known Allergies Allergy Verified 01/22/19 15:44 PMH/Surg Hx/FS Hx/Imm Hx Previously Healthy: Yes - Pt denies PMHX - Surgical History Surgical History: Yes Surgery Procedure, Year, and Place: removal of a lipoma on back - Family History Known Family History: Positive: Hypertension - Social History Occupation: Employed Full-time Lives: With Family Alcohol Use: Occasionally Substance Use Type: None Smoking Status (MU): Former Smoker Type: Cigarettes Have You Smoked in the Last Year: No When Did the Patient Quit Smoking/Using Tobacco: 2007 Review of Systems All Other Systems Reviewed And Are Negative: Yes Constitutional: Positive: Negative Skin: Positive: Negative Eyes: Positive: Negative ENT: Positive: Sore Throat, Nasal Discharge - green, Sinus Congestion, Sinus Pain/Tenderness, Other - green PND Respiratory: Positive: Cough - dry cough Cardiovascular: Positive: Negative Gastrointestinal: Positive: Negative Genitourinary: Positive: Negative Motor: Positive: Negative Neurovascular: Positive: Negative Musculoskeletal: Positive: Negative Neurological: Positive: Negative Psychological: Positive: Negative Is Patient Immunocompromised?: No Physical Exam - Summary Physical Exam Summary: Vitals: reviewed General: Well developed, well-nourished male patient with NAD. Head and face: Normocephalic and atraumatic, Positive tenderness over the frontal and maxillary sinuses.. Eyes: PERRLA, EOMI x 2. Normal conjunctiva. No eye discharge. ENT: Ears and TM with normal limits. Nose: edematous and erythematous nasal mucosa with with yellowish discharge and erythematous mucosa. Pharynx with erythema, no exudate. green PND Neck: Supple, no JVD, no carotid bruits and no lymphadenopathy. Lungs: clear, no rales, no rhonchi, no wheezes. CVS: RRR, S1 and S2 present no murmurs or gallops appreciated. Abdomen: soft nontender with positive bowel sounds. Extremities: no edema noted. Neuro: WNL. Skin: warm and dry Triage Information Reviewed: Yes Vital Signs: Initial Vital Signs Temp 98.6 F 01/22/19 15:40 Pulse 69 01/22/19 15:40 Resp 16 01/22/19 15:40 BP 125/77 01/22/19 15:40 Pulse Ox 99 01/22/19 15:40 Throat Pain/Nasal Course/Dx - Course Course Of Treatment: 44 y/o male presents to the urgent care c/o nasal congestion w./ moderate nasal discharge, sinus pain and dry cough for the past month. Pt states keila throat in the past week when he wakes up and on an off H. Pt has tried OTC medication w/o any improvement and now feels he needs antibiotic treatment. Pain is 4/10. Pt denies fever, dizziness, wheezing, SOB, chest pain, abdominal pain, N/V/D. Hx obtained. Pt w/ sinusitis on examination. Pt with 4 weeks of symptoms getting worse. Pt Rx Amoxicillin PO and flonase nasal spray. Discharge instructions explained to Pt. Advised to Return to the clinic or PCP if symptoms do not improve.Pt understood and agreed with plan of care. - Differential Dx/Diagnosis Differential Diagnosis/HQI/PQRI: Influenza, Laryngitis, Otitis Media, Pharyngitis, Sinusitis, Tonsillitis, URI Provider Diagnosis: Acute bacterial sinusitis Discharge ED - Sign-Out/Discharge Documenting (check all that apply): Patient Departure - D/C home All imaging exams completed and their final reports reviewed: No Studies - Discharge Plan Condition: Stable Disposition: HOME Prescriptions: Amoxicillin PO (*) [Amoxicillin 875 MG (*)] 875 mg PO BID #20 tab Fluticasone NASAL SPRAY 50MCG* [Flonase NASAL SPRAY 50MCG*] 2 spray BOTH NARES DAILY #1 btl Patient Education Materials: Sinusitis (ED) Referrals: Mick Corral DO [Primary Care Provider] - 3 Days Additional Instructions: 1- Please increase fluid intake and rest. take full course of antibiotics to avoid resistance. Take yogurts w/ probiotics or Culturelle to protect your GI system 2-Use Flonase as directed to help drain fluid. Also buy saline drops to clear sinuses 3-Please f/u w/ your PCP in 3 days if symptoms do not improve for further management and treatment - Billing Disposition and Condition Condition: STABLE Disposition: Home
== END 2019-01-22 16:09 | disposition home or self-care (01) ==
LOC: UCCORT 14:54
DX: J01.90 Acute sinusitis, unspecified (principal); B96.89 Other specified bacterial agents as the cause of diseases classified elsewhere; Z87.891 Personal history of nicotine dependence
CPT/HCPCS: 99212; G0463